=== PATIENT | male | born 1960 | race Caucasian/White ===

== ENCOUNTER 2020-09-30 12:09 | Emergency (ER) | payer MEDICAID, SELFPAY ==
[2020-09-30 12:10] VITALS: BP 126/81; PULSE 93; RESP 16; TEMP 37.3; O2SAT 98; BMI 29.9
--- NOTE | 2020-09-30 12:24 | EDS_ITS ---
HPI History of Present Illness HPI Narrative: Yesterday patient had a heavy rack collapse and fall on him injuring primarily his left knee and he also has a contusion on his left flank. He denies any LOC. Today the knee was much more swollen and bruised anyone to have it evaluated. No prior knee history or surgery. Chief Complaint: Fall Informant: patient and family Occured/Mechanism Mechanism/Context: Yes injury and Yes blunt trauma Onset/Context/Timing Onset: Yesterday Context: Sudden Onset Timing: Continuous Quality of Pain: Dull and Aching Current Severity: Mild Maximum Severity: Mild Associated Symptoms Associated Symptoms: Negative for Parasthesia, Weakness and Loss of Funtion Narrative Narrative: 59-year-old gentleman history of high cholesterol. Takes an aspirin but no other blood thinners. Yesterday around collapsed injuring his left knee. He also has some bruising on his left flank. Denies any LOC. No hematuria. Prior similar symptoms: No Recent Illness/Hospitalization: No PFSH PFSH Medical History (Updated 09/30/20 @ 14:[address] Chris Cruz MD) HLD (hyperlipidemia) Home Medications aspirin 325 mg PO DAILY 09/30/20 [History Last Taken Unknown] cetirizine 10 mg PO DAILY 09/30/20 [History Last Taken Unknown] hydrocodone-acetaminophen 1 tab PO Q4H PRN 7 Days #20 tab 09/30/20 [Rx Last Taken Unknown] simvastatin 40 mg PO DAILY 09/30/20 [History Last Taken Unknown] Allergy/AdvReac Type Severity Reaction Status Date / Time No Known Allergies Allergy Verified 09/30/20 12:11 Surgical History (Updated 09/30/20 @ 12:56 by Yordan Coughlin) History of vein stripping Social History Smoking Status: Current every day smoker tobacco type: cigarettes ROS ROS ED ROS Narrative Denies recent illness. No hematuria. Review of Systems ROS Unobtainable: Denies due to encephalopathy Constitutional Constitutional ED: Denies chills or fever(s) Eyes Eyes: Denies change in vision ENT ENT ED: Denies ear pain or sore throat Cardiovascular Cardiovascular: Denies chest pain Respiratory/Chest Respiratory/Chest: Denies cough or dyspnea Gastrointestinal Gastrointestinal: Denies abdominal pain, diarrhea, nausea or vomiting Genitourinary Genitourinary ED: Denies dysuria or hematuria Musculoskeletal Musculoskeletal: Reports arthralgias; Denies myalgias Integumentary Denies rash Neurologic Neurologic: Denies headache(s) Psychiatric Psychiatric: Denies depression Endocrine Endocrinology: Denies polyuria Hematologic/Lymphatic Hematologic/Lymphatic: Denies easy bruising Allergic/Immunologic Allergic/Immunologic ED: Denies urticaria EXAM Physical Exam Narrative Exam Narrative: Middle-age male no acute distress vital signs stable afebrile. HEENT exam unremarkable atraumatic. Scalp nontender. C-spine nontender. Trachea midline. Lungs clear to auscultation bilaterally. Heart regular rate and rhythm no murmur rate about 90. Chest wall unremarkable atraumatic. Abdomen soft nontender normal bowel sounds no peritoneal signs no bruising. Back spine nontender. In his left flank he has a mild bruise. There is no significant tenderness. Pelvic girdle intact. He is moving all 4 extremities. Neurovascularly intact specifically his left knee has swelling, bruising and a moderate sized effusion. He can flex and extend the knee. He can extend 180 degrees and lifted off the bed. His quadriceps patellar and infrapatellar te ndon are intact. As are his ACL and PCL. MCL and LCL. Distally he has normal dorsi and plantar flexion of his left foot and ankles are nontender. He has normal touch sensation. Const Vital Signs: 09/30/20 12:10 Temperature 99.1 F Temperature Source Temporal Pulse Rate 93 Respiratory Rate 16 Blood Pressure 126/81 H Blood Pressure Mean 96 Pulse Ox 98 Oxygen Delivery Method Room Air Positive well nourished and well developed General Appearance ED: well developed and NAD HEENT Reports moist mucous membranes normocephalic and atraumatic; Negative for trauma or tenderness Eyes PERRL Neck full ROM and supple Thyroid: Negative for tender Chest Wall inspection of chest normal and palpation of chest normal Resp normal respiratory effort, no retractions and clear to auscultation bilaterally Auscultation: Negative for rales, rhonchi or wheezes Cardio regular rate, regular rhythm, S1 normal heart sound, S2 normal heart sound and n o murmurs GI non-tender, non-distended and no masses Auscultation: normoactive bowel sounds Palpation: soft; Negative for tender, guarding or rebound tenderness present Back/Spine no CVA tenderness Back/Spine Narrative: Mild bruising left flank. Extremity normal to inspection Extremity Narrative: Except left knee effusion. Bruising. Limited flexion due to swelling. Full extension 180 degrees. ACL and PCL intact. LCL and MCL intact. Tender palpation. Distally left foot and ankle neurovascularly intact nontender nonswollen. Neuro oriented x3 Sensorium / Orientation: alert, oriented to person, oriented to place and oriented to time; Negative for orientation impaired Motor Exam: strength 5/5 throughout Psych mental status grossly normal Skin Skin Narrative: Bruising left knee. Left flank. Lesions: no lesions Rashes: no rashes MDM MDM MDM Narrative Medical decision making narrative: Left knee injury yesterday with moderate effusion and bruising today. X-rays being obtained. Repeat exam patient doing well at 2:00. The knee is no worse than it was on presentation. His ACL PCL MCL and LCL all appear to be intact. Foot is neurovascularly intact. He had 9 his brother discussed his x-ray results. Ice and elevate. Motrin and [place] for pain. Off work this week. Radiography Diagnostic Testing: Radiology Impression Knee X-Ray 09/30/20 12:33 IMPRESSION: 1. No acute fracture or dislocation. 2. Large joint effusion. Electronically Signed: Glenn Flores MD at 12:48 EDT Tel , Service support , The x-rays 4 views shows a moderate to large knee effusion but there is no fracture or dislocation. I did go over the films with the patient. Discharge Plan Triage Chief Complaint: Fall ED Provider: Chris Cruz Dx/Rx/DC Orders Clinical Impression: Effusion of knee joint Instructions: ED Knee Effusion Prescriptions: New hydrocodone-acetaminophen 5-325 mg tablet 1 tab PO Q4H PRN (Reason: pain) 7 Days Qty: 20 RF: 0 No Action cetirizine 10 mg tablet 10 mg PO DAILY RF: 0 aspirin 325 mg Tablet 325 mg PO DAILY RF: 0 simvastatin 40 mg tablet 40 mg PO DAILY RF: 0 Primary Care Provider: Owen Bonilla Referrals: Owen Bonilla MD [Primary Care Provider] - 10-14 Days if not better Activity Restrictions/Additional Instructions: Crutches or walker to walk. Increase activity and weightbearing as tolerated. Ice and elevate your knee at least 5 times a day for half an hour each time to decrease pain and swelling. [place] for more severe pain you may also use Motrin. You can use Tylenol but you cannot use Tylenol and [place] together. Follow-up with your doctor if this is not improving you may need to get an MRI. This appears to be a soft tissue injury your left knee with a large effusion which is fluid in the knee. This should improve but it can take time. Off work this coming week. Disposition Disposition: Home, Self Care
--- NOTE | 2020-09-30 12:33 | RAD_ITS ---
STUDY: X-RAY - LEFT KNEE REASON FOR EXAM: Male, 59 years old. fall TECHNIQUE: 4 view(s) of the knee. COMPARISON: None. FINDINGS: Normal visualized distal femur. Normal visualized proximal tibia and fibula. Normal proximal tibiofibular articulation. Normal medial femorotibial compartment. Normal lateral femorotibial compartment. Normal patellofemoral articulation. Large joint effusion. The soft tissue structures are unremarkable. RAD/Knee 4 or More Views IMPRESSION: 1. No acute fracture or dislocation. 2. Large joint effusion. Electronically Signed: Glenn Flores MD at 12:48 EDT Tel , Service support ,
[2020-09-30 14:20] VITALS: BP 125/67; PULSE 76; RESP 17; O2SAT 97
== END 2020-09-30 14:20 | disposition home or self-care (01) ==
PROVIDERS: Emergency Provider Emergency Medicine; PCP Family Medicine
DX: M25.462 Effusion, left knee (principal); E78.00 Pure hypercholesterolemia, unspecified; F17.210 Nicotine dependence, cigarettes, uncomplicated; Z79.82 Long term (current) use of aspirin; Z79.899 Other long term (current) drug therapy
CPT/HCPCS: 73564; 99282